=== PATIENT | male | born 1990 | race Caucasian/White ===

== ENCOUNTER 2022-06-18 09:58 | Outpatient (CLI) | payer OTHER, SELFPAY ==
[2022-06-18 18:36] LABS: Basophils Percent Auto 0.4 % (0.2-1.2); Eosinophils Absolute Auto 0.1 K/mm3 (0-0.3); Hematocrit 46.6 % (42.0-52.0); Hemoglobin 16.2 g/dL (14.0-18.0); Immature Granulocyte Absolute 0.07 K/mm3 (0.00-0.031); Lymphocytes Absolute Auto 1.08 K/mm3 (0.9-3.2); Lymphocytes Percent Auto 15.3 % (18.3-44.2); Mean Corpuscular HGB Conc 34.8 g/dl (32-36); Mean Corpuscular Hemoglobin 30.7 pg (26-34); Mean Corpuscular Volume 88.3 fl (80-100); Monocytes Absolute Auto 0.4 K/mm3 (0.1-0.6); Neutrophils Absolute Auto 5.5 K/mm3 (1.3-6.7); Neutrophils Percent Auto 77.3 % (45.5-73.1); Platelet Count Result 180 k/mm3 (150-375); Red Blood Count 5.28 M/mm3 (4.6-6.20); Red Cell Distribution Width 11.7 % (11.5-14.5); White Blood Count 7.1 K/mm3 (4.5-10.0)
[2022-06-18 19:08] LABS: Alanine Aminotransferase 44 U/L (6-50); Albumin Level 4.7 g/dL (3.5-5.1); Alkaline Phosphatase 59 U/L (38-126); Anion Gap 7 mmol/L (8-16); Aspartate Amino Transferase 33 U/L (17-59); Bilirubin,Total 0.6 mg/dL (0.2-1.3); Blood Urea Nitrogen 15 mg/dL (9-20); Calcium 9.4 mg/dL (8.4-10.2); Carbon Dioxide 27 mmol/L (22-30); Chloride 103 mmol/L (98-107); Estimated Glomerular Filt Rate > 60; Glucose 102 mg/dL (65-110); Potassium 4.4 mmol/L (3.4-5.0); Sodium 137 mmol/L (137-145)
[2022-06-18 19:48] LABS: Iron 68 ug/dL (49-181); Percent Iron Saturation 17 % (20-50)
[2022-06-22 18:32] LABS: Gliadin AB, IgG <1.0 U/mL (<15.0); TTG IGA AB <1.0 U/mL (<15.0)
== END 2022-06-18 09:59 | disposition home or self-care (01) ==
LOC: ANHGOSHLAB 09:59
PROVIDERS: PCP Internal Medicine; Visit Provider Nurse Practitioner
DX: K62.5 Hemorrhage of anus and rectum (principal)
CPT/HCPCS: 36415; 80053; 82728; 83516; 83540; 83550; 84443; 85025; 86255

== ENCOUNTER 2022-06-25 15:53 | Outpatient (CLI) | payer OTHER, SELFPAY ==
[2022-06-25 19:14] LABS: Erythrocyte Sedimentation Rate 12 mm/hr (0-20)
== END 2022-06-25 15:54 | disposition home or self-care (01) ==
LOC: ANHGOSHLAB 15:54
PROVIDERS: PCP Internal Medicine; Visit Provider Nurse Practitioner
DX: K62.5 Hemorrhage of anus and rectum (principal)
CPT/HCPCS: 36415; 85652

== ENCOUNTER 2022-07-16 10:49 | Outpatient (CLI) | payer OTHER, SELFPAY ==
[2022-07-24 19:52] LABS: Calprotectin, Stool 64 mcg/g
== END 2022-07-16 10:50 | disposition home or self-care (01) ==
LOC: ANHLAB 10:50
PROVIDERS: PCP Family Medicine; Visit Provider Nurse Practitioner Family
DX: K62.5 Hemorrhage of anus and rectum (principal)
CPT/HCPCS: 83993

== ENCOUNTER 2022-07-29 07:44 | Outpatient (NON) | payer OTHER, SELFPAY | END 2022-07-29 07:45 | disposition home or self-care (01) | PROVIDERS: PCP Family Medicine; Visit Provider Internal Medicine Gastroenterology | DX: K51.90 Ulcerative colitis, unspecified, without complications (principal) | CPT/HCPCS: 88305; 88342 ==

== ENCOUNTER 2022-07-29 11:51 | Day surgery (SDC) | payer OTHER, SELFPAY ==
[2022-06-29 14:29] VITALS: BMI 27.7
--- NOTE | 2022-07-29 11:41 | P.PNAN_ITS ---
Anes - Initial Pre Proc Eval Procedure: Operation Date: 07/29/22 13:30 Proposed Procedures p Diagnostic Colonoscopy - Keron Mccain MD Date/Time: 07/29/22 11:41 Surgeon: Keron Mccain MD Pre Op Diagnosis: Hemorrhage of anus and rectum Patient Data Age: 32 Gender: M Height: 1.88 m Weight: 98 kg Allergies Allergy/AdvReac Type Severity Reaction Status Date / Time No Known Allergies Allergy Verified 07/29/22 12:14 Home Medications Medication Instructions Recorded Confirmed Type sertraline 50 mg tablet 50 mg PO DAILY #90 tabs 07/16/22 07/29/22 Rx Patient hx anesthesia problems: none Family hx anesthesia problems: none Results Review: All pre-operative results and documents have been reviewed as part of the pre- operative evaluation. [facility] Past Medical History Medical History (Updated 07/29/22 @ 11:42 by Calvin Miguel MD) Chronic GERD Heart murmur IBS (irritable bowel syndrome) Ulcerative colitis Surgical History Surgical History H/O colonoscopy (~02/14/21) History of hand surgery (~2003) Family History Family History Mother Cancer Grandparent Cancer Diabetes mellitus Hypertension Cerebrovascular accident Father Diabetes mellitus Hypertension Social History Social History Smoking packs per day: 0.5 Smoking cigarettes per day: 10.0 Years smoked: 10 Smoking pack-years: 5.00 Smoking status: Former smoker Tobacco type: cigarettes and e-cigarettes/vaping Additional smoking assessment comments: on and off vaping when stressed has tried to quit Alcohol intake: current Drinks per week: 10 Alcohol use details: 3-6 drinks per week, beer, champagne Substance use: never Substance use type: does not use Lack of Transportation: No Lack of Food: Never True Current Housing: I Have Housing Concerned About Future Housing: No Difficulty Paying Gas/Electric Bills: No Difficulty Paying for Meds: No Currently Unemployed: No Education: Master's Degree or Higher Difficulty w/ Childcare or Family Care: No Living arrangements: with family Spiritual care concerns: No Anes - Eval Final PreProcedure Day of Procedure 07/29/22 11:41 Patient weight: overweight Heart: regular rate and rhythm Lungs: clear to auscultation and normal air movement Airway: Mallampati scale class II Neurological: alert and oriented Last oral intake: >/= 8 hours ASA classification: III Emergent: no Anesthetic plan: proceed Anesthesia type and monitoring: general GIVS Results Review: All pre-operative results and documents have been reviewed as part of the pre- operative evaluation. Informed Consent: The patient's anesthetic plan and its attendant risks and benefits were discussed with the patient/family/POA. Questions were solicited and answers provided to the satisfaction of the patient/family/POA.
[2022-07-29 12:15] VITALS: BP 137/87; PULSE 50; RESP 20; TEMP 36.7; O2SAT 99
[2022-07-29] MEDS: LACTATED RINGERS 1,000 ML 150 ML IV CONT (12:24)
--- NOTE | 2022-07-29 13:37 | SUR.PREOP ---
PT UPDATED DR RON REMAINS AT HOSPITAL. NO TIME FRAME GIVEN.
--- NOTE | 2022-07-29 14:31 | WPDHPUPDATE1 ---
History and Physical Update Update Date/Time: 07/29/22 14:31 History and Physical has been reviewed, including an updated exam of the patient. There are NO changes in the patient's condition. Risks, benefits, and alternatives have been discussed and questions answered. Patient agrees to proceed with procedure.
[2022-07-29 15:14] VITALS: BP 106/61; PULSE 43; RESP 15; O2SAT 100
[2022-07-29 15:24] VITALS: BP 105/63; PULSE 40; RESP 15; O2SAT 100
[2022-07-29 15:34] VITALS: BP 119/77; RESP 15; O2SAT 100
== END 2022-07-29 15:59 | disposition home or self-care (01) ==
PROVIDERS: PCP Family Medicine; Visit Provider Internal Medicine Gastroenterology
PROC: 0DJD8ZZ Inspection of Lower Intestinal Tract, Via Natural or Artificial Opening Endoscopic (ICD-10-PCS; CPT 45378; principal; 2022-07-29 13:30)
DX: K51.90 Ulcerative colitis, unspecified, without complications (principal)
CPT/HCPCS: 45380

== ENCOUNTER 2023-10-29 17:02 | Emergency (ER) | payer OTHER, SELFPAY ==
--- NOTE | ~2023-10-29 | XR_ITS ---
EXAM: XR foot RT min 3V DATE: 10/29/2023 17:28 HISTORY: dorsal foot pain, no injury . COMPARISON: None available. FINDINGS: Normal mineralization. No fracture or dislocation. No lytic or blastic lesion. Joint space s are maintained. No erosion or periosteal change. Soft tissues within normal limits. IMPRESSION: No acute osseous finding in the right foot. Reviewed, dictated and finalized at location K.
[2023-10-29 17:11] VITALS: BP 143/92; PULSE 65; RESP 16; TEMP 36.3; O2SAT 99
--- NOTE | 2023-10-29 17:58 | ED.EXTPRO ---
HPI - Extremity Problem General Chief complaint: Extremity Injury, Lower Stated complaint: Swollen Right Foot Time Seen by Provider: 10/29/23 17:20 Source: patient and RN notes reviewed Mode of arrival: other (with crutches) Limitations: no limitations History of Present Illness HPI Narrative: Patient presents today complaining of pain to the dorsum of his right foot. States he stepped out of a car yesterday and had some immediate pain as he stepped onto the ground. Denies any rolling of the foot or known injury. As time has gone on, the pain has worsened to the point where he does not feel that he can walk and has been using crutches. Denies numbness or tingling in the foot or toes. No pain to the lower leg or calf. No pain to the ankle. Patient denies any history of gout. States he was recently diagnosed with Ulcerative Colitis. Patient states he is not on any medication at this time for his UC. States he was told recently by GI that he had to start eating more protein and meat. He did not eat much as his is vegetarian. He was on vacation over the last few days and has been eating a lot of seafood and ate brisket last night. He does not drink alcohol anymore due to his UC. Related Data Allergies Allergy/AdvReac Type Severity Reaction Status Date / Time No Known Allergies Allergy Verified 10/29/23 17:25 Review of Systems Review of Systems: CONSTITUTIONAL: Denies body aches, fever, chills, or sweats. EYES: Denies visual changes, redness, or discharge. ENT: Denies rhinorrhea, congestion, sore throat, or otalgia. CARDIOVASCULAR: Denies chest pain, palpitations, or edema. RESPIRATORY: Denies cough or dyspnea. GASTROINTESTINAL: Denies abdominal pain, nausea, vomiting, or diarrhea. GENITOURINARY: Denies dysuria or hematuria. SKIN: Denies rash, itching, or wounds. MUSCULOSKELETAL: Denies back pain, or myalgia. + right foot pain and swelling NEUROLOGIC: Denies headache, numbness, tingling, or weakness. PSYCH: Denies depression or anxiety. [facility] Past Medical History Medical History Chronic GERD Heart murmur IBS (irritable bowel syndrome) Ulcerative colitis Surgical History Surgical History H/O colonoscopy (~02/14/21) History of hand surgery (~2003) Family History Family History Mother Cancer Grandparent Cancer Diabetes mellitus Hypertension Cerebrovascular accident Father Diabetes mellitus Hypertension Social History Social History Years smoked: 10 Smoking status: Former smoker Smoking end date: 09/13/22 Additional smoking assessment comments: recently quit smoking Alcohol intake: current Drinks per week: 10 Alcohol use details: 3-6 drinks per week, beer, champagne Substance use: never Substance use type: does not use Lack of Transportation: No Lack of Food: Never True Current Housing: I Have Housing Concerned About Future Housing: No Difficulty Paying Gas/Electric Bills: No Difficulty Paying for Meds: No Currently Unemployed: No Education: Master's Degree or Higher Difficulty w/ Childcare or Family Care: No Living arrangements: with family Spiritual care concerns: No Comments At time of signature, I have reviewed and agree with nursing past medical, surgical, social and family history unless otherwise noted. Please see nursing chart for further information. There is no relevant family history pertinent to the presenting complaint Exam Narrative: GENERAL: Well-appearing, well-nourished, and in no acute distress. HEAD: Normocephalic, atraumatic. EYES: EOMI. No redness or drainage. Conjunctivae normal. ENT: Mucous membranes pink and moist. NECK: Normal AROM. CHEST: No respiratory distress. EXTREMI
== END 2023-10-29 18:07 | disposition home or self-care (01) ==
PROVIDERS: Emergency Provider Nurse Practitioner; PCP Family Medicine
DX: M10.9 Gout, unspecified (principal); Z87.891 Personal history of nicotine dependence; K21.9 Gastro-esophageal reflux disease without esophagitis; R01.1 Cardiac murmur, unspecified
CPT/HCPCS: 73630; 99213; G0463

== ENCOUNTER 2023-11-16 08:36 | Outpatient (CLI) | payer OTHER, SELFPAY ==
[2023-11-16 19:21] LABS: Basophils Percent Auto 0.2 % (0.2-1.2); Eosinophils Absolute Auto 0.1 K/mm3 (0-0.3); Eosinophils Percent Auto 1.3 % (0-4.4); Hematocrit 47.9 % (42.0-52.0); Hemoglobin 16.1 g/dL (14.0-18.0); Immature Granulocyte Absolute 0.02 K/mm3 (0.00-0.031); Immature Granulocyte Percent A 0.4 % (0-0.5); Lymphocytes Absolute Auto 1.29 K/mm3 (0.9-3.2); Lymphocytes Percent Auto 23.3 % (18.3-44.2); Mean Corpuscular HGB Conc 33.6 g/dl (32-36); Mean Corpuscular Hemoglobin 31.1 pg (26-34); Mean Corpuscular Volume 92.6 fl (80-100); Mean Platelet Volume 10.6 fl (7.4-10.4); Monocytes Absolute Auto 0.5 K/mm3 (0.1-0.6); Monocytes Percent Auto 8.7 % (2.6-8.5); Neutrophils Absolute Auto 3.7 K/mm3 (1.3-6.7); Neutrophils Percent Auto 66.1 % (45.5-73.1); Platelet Count Result 171 k/mm3 (150-375); Red Blood Count 5.17 M/mm3 (4.6-6.20); Red Cell Distribution Width 11.7 % (11.5-14.5); White Blood Count 5.5 K/mm3 (4.5-10.0)
[2023-11-16 20:19] LABS: Alanine Aminotransferase 70 U/L (6-50); Albumin Level 4.6 g/dL (3.5-5.1); Alkaline Phosphatase 57 U/L (38-126); Anion Gap 11 mmol/L (4-12); Aspartate Amino Transferase 42 U/L (17-59); Bilirubin,Total 0.8 mg/dL (0.2-1.3); Blood Urea Nitrogen 16 mg/dL (9-20); Calcium 9.1 mg/dL (8.4-10.2); Carbon Dioxide 26 mmol/L (22-30); Chloride 102 mmol/L (98-107); Cholesterol 299 mg/dL (0-200); Estimated Glomerular Filt Rate > 60; Glucose 95 mg/dL (65-110); HDL Direct 36 mg/dL; Potassium 4.1 mmol/L (3.4-5.0); Sodium 139 mmol/L (137-145); Triglycerides 347 mg/dL (<150)
[2023-11-16 20:34] LABS: LDL Cholesterol Direct 137 mg/dL
== END 2023-11-16 08:37 | disposition home or self-care (01) ==
LOC: ANHGOSHLAB 08:38
PROVIDERS: PCP Family Medicine; Visit Provider Family Medicine
DX: Z00.00 Encounter for general adult medical examination without abnormal findings (principal)
CPT/HCPCS: 36415; 80053; 80061; 84550; 85025

== ENCOUNTER 2024-03-08 10:41 | Emergency (ER) | payer SELFPAY ==
--- NOTE | ~2024-03-08 | XR_ITS ---
EXAMINATION: XR chest 2V DATE: 03/08/2024 11:25 INDICATION: Shortness of breath, cough and fever TECHNIQUE: PA and lateral views of the chest were obtained. COMPARISON: None FINDINGS: Subtle airspace opacities in the perihilar left mid and lower lung zones suspicious for pneumonia. Ri ght lung remains clear. No pleural effusion or pneumothorax. The cardiomediastinal silhouette is norm al. Visualized bones and soft tissues are unremarkable. IMPRESSION: 1. Left perihilar opacities suspicious for pneumonia. Reviewed, dictated and finalized at location B. LINE ASSEMBLER
[2024-03-08 10:52] VITALS: BP 120/80; PULSE 87; RESP 16; TEMP 37; O2SAT 100
[2024-03-08 11:21] LABS: EDINFLUASCREEN Negative (Negative); EDINFLUBSCREEN Negative (Negative); EDSTREPNEGPOS1 Negative (Negative)
--- NOTE | 2024-03-08 11:35 | ED.URI ---
HPI - URI/Sore Throat General Chief Complaint: Upper Respiratory Infection Stated Complaint: Headache/Cough/Fever Time Seen by Provider: 03/08/24 11:05 Source: patient Mode of arrival: ambulatory Limitations: no limitations History of Present Illness HPI Narrative: Gopal is a 33-year-old male patient presenting to the clinic today with complaints of headache, nasal congestion, cough, fever, congestion, shortness of breath, nausea, vomiting, fatigue, and sore throat. He reports symptoms started on Tuesday. 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 He has taken 2 at home COVID test and both were negative. MD elicited complaint: fever, cough, sore throat and nasal congestion Related Data Allergies Allergy/AdvReac Type Severity Reaction Status Date / Time No Known Allergies Allergy Verified 03/08/24 11:04 Review of Systems Review of Systems: Pertinent positives per HPI. Patient denies any rash, visual changes, dizziness,chest pain, palpitations, diarrhea, constipation, abdominal pain, or any urinary issues. [facility] Past Medical History Medical History (Updated 03/08/24 @ 11:37 by Ciro Johnson APRN) Chronic GERD Heart murmur IBS (irritable bowel syndrome) Surgical History Surgical History H/O colonoscopy (~02/14/21) History of hand surgery (~2003) Family History Family History Mother Cancer Grandparent Cancer Diabetes mellitus Hypertension Cerebrovascular accident Father Diabetes mellitus Hypertension Social History Social History (Updated 11/03/23 @ 11:56 by Kristina Roche MA) Years smoked: 10 Smoking status: Former smoker Smoking end date: 09/13/22 Additional smoking assessment comments: recently quit smoking Alcohol intake: current Drinks per week: 10 Alcohol use details: 3-6 drinks per week, beer, champagne Substance use: current Substance use type: marijuana Do You Feel Safe in your Home?: Yes Lack of Transportation: No Lack of Food: Never True Current Housing: I Have Housing Concerned About Future Housing: No Difficulty Paying Gas/Electric Bills: No Difficulty Paying for Meds: No Currently Unemployed: No Education: Master's Degree or Higher Difficulty w/ Childcare or Family Care: No Living arrangements: with family Spiritual care concerns: No Comments At the time of my signature, I reviewed and agree with the nursing past medical, surgical, social, and family history. There is no relevant family history pertinent to the patient complaint. Exam Narrative: General: Well-developed, well nourished, in no apparent distress Head: Normocephalic, atraumatic Eyes: Pupils equally round and reactive to light bilaterally, EOM intact, sclera and conjunctive clear, no discharge, lids normal Ears: TMs intact and congested, ear canals clear, no drainage, grossly hearing normal. Nose: Nares patent, clear nasal discharge, no inflammation, no sinus tenderness. Mouth: Oral pharynx red without lesions or masses, good dentition, MMM. Neck: Supple, trachea midline, no enlargement of anterior or posterior cervical nodes, no thyroid masses or goiter palpable. Cardio: Regular rate and rhythm, s1 and s2 normal, no murmur appreciated. Resp: Faint crackles over the left upper lobe, no rhonchi, wheezing or rubs Course Course Emergency Course: Portions of this record may have been created with voice recognition software. Level of Care: Express Care Visit Vital Signs Vital signs: Vital Signs Temperature 37.0 C 03/08/24 10:52 Pulse Rate 87 03/08/24 10:52 Respiratory Rate 16 03/08/24 10:52 Blood Pressure 120/80 03/08/24 10:52 Pulse Oximetry 100 03/08/24 10:52 Temperature 37.0 C 03/08/24 10:52 Pulse Rate 87 03/08/24 10:52 Respiratory Rate 16 03/08/24 10:52 Blood Pressure 120/80 03/08/24 10:52 Pulse Oximetry 100 03/08/24 10:52 Vital signs reviewed MDM - URI/Sore Throat MDM Narrative Medical decision making narrative: At the time of visit patient is resting comfortably on the exam table. Patient appears to be nontoxic. Labs: Influenza and strep test were performed and were negative. We will send strep for culture. Diagnostics: Chest x-ray shows possible pneumonia it to the left perihilar area Plan: I suspect patient has pneumonia. Prescription for albuterol inhaler, azithromycin, and Augmentin was sent to the pharmacy. Supportive measures were discussed with the patient and they voiced understanding discharge instructions and agrees to treatment plan. Return precautions reviewed Differential Diagnosis Differential diagnosis: Likely upper respiratory infection, otitis media, sinusitis, viral infection, bronchitis, influenza, pharyngitis and other (COVID) Lab Data Labs: Lab Results 03/08/24 Range/Units 11:20 POC Influenza A Ag Negative (Negative) POC Influenza B Ag Negative (Negative) POC Grp A Strep Screen Negative (Negative) Imaging Data Radiologist's impression: ITS Impressions Chest X-Ray 03/08/24 11:30 IMPRESSION: 1. Left perihilar opacities suspicious for pneumonia. Discharge Plan Discharge Clinical Impression: Pneumonia Patient Disposition: Home, Self-Care Condition: Stable Instructions: Antibiotic Form, Pneumonia (ED) Additional Instructions: Influenza and strep test were negative in the clinic today. Chest x-ray shows left perihilar opacities suspicious for pneumonia Take prescription medications only as prescribed-albuterol, and azithromycin, and Augmentin Increase fluids and stay well hydrated Tylenol/motrin for pain/fever Flonase and OTC antihistamines as directed Vicks vapor rub to open sinuses Sinus rinses for congestion Cepacol spray, cough drops, throat lozenges, warm tea with honey/lemon, gargle salt water to soothe throat BRAT diet for diarrhea Clear liquids x 24 hours then advance as tolerated for nausea/vomiting Go to the ED if you develop a worsening in your condition- high fever not controlled by Tylenol or Motrin, dehydration, weakness, lethargy, shortness of breath, or chest pain. Follow up with your PCP in 3-5 days if symptoms persist. Prescriptions: New azithromycin 250 mg tablet See Rx Instructions .ROUTE .COMPLEX Qty: 6 0RF Rx Instructions: For 250 mg dose pack: take 500 mg today (day 1), then 250 mg for 4 days (days 2-5) albuterol sulfate 90 mcg/actuation HFA aerosol inhaler 2 puff inhalation Q4-6H PRN (Reason: shortness of breath or wheezing) 30 Days Qty: 8.5 0RF amoxicillin-pot clavulanate 875-125 mg tablet 1 tablet PO Q12H 7 Days Qty: 14 0RF No Action colchicine 0.6 mg tablet See Rx Instructions PO DAILY 7 Days Qty: 7 1RF Rx Instructions: acute episode: 1.2mg x1. may repeat 0.6mg after one hour. max daily dose 1.8mg sertraline 50 mg tablet 50 mg PO DAILY Qty: 90 3RF allopurinol 300 mg tablet 600 mg PO DAILY Qty: 180 3RF Follow-up/Referrals: [facility] [Primary Care Provider] - Stand Alone Forms: Work/School Release IP Time of Disposition: 11:38 Quality NIHSS Nursing Documentation ED NIHSS nursing documentation: reviewed/agree
== END 2024-03-08 11:45 | disposition home or self-care (01) ==
PROVIDERS: Emergency Provider Nurse Practitioner Family
DX: J18.9 Pneumonia, unspecified organism (principal); Z87.891 Personal history of nicotine dependence; Z20.822 Contact with and (suspected) exposure to COVID-19
CPT/HCPCS: 71046; 87081; 87804; 87880; 99213; G0463

== ENCOUNTER 2025-03-05 08:07 | Outpatient (CLI) | payer BC, SELFPAY ==
--- OUTSIDE RECORDS SUMMARY | 2025-03-05 08:15 | XMS_ITS | Clinical Summary ---
Author Organization [facility] [address] [place] Address [address] [place] [id number] Care Team Providers Care Scratch Brusher Name Role Phone Unknown, Notinfile Primary Care Provider Unavail able Allergies No known active allergies Medications allopurinoL (ZYLOPRIM) 300 mg tablet TAKE 2 TABLET BY MOUTH DAILY. Active sertraline (ZOLOFT) 50 mg tablet Take 1 tablet (50 mg total) by mouth daily Active triamcinolone (KENALOG) 0.1 % creamIndication s:Insect bite of chest, left, initial encounter Apply to affected area 1-2 times daily as needed. Avoid face and groin. 30 g 10/23/2024 10/24/19 26 Active Active Problems No known active problems Social History Tobacco Use Types Packs/Day Years Used Date Smoking Tobacco: Never Assessed Sex and Gender Information Value Date Recorded Sex Assigned at Not on file Legal Sex Male 8:20 AM CDT Gender Identity Not on file Sexual Orientation Not on file Last Filed Vital Signs Vital Sign Reading Time Taken Comments Blood Pressure 157/104 10/23/2024 8:30 AM CDT Pulse 88 10/23/2024 8:30 AM CDT Temperature 37.2 C (98.9 F) 10/23/2024 8:30 AM CDT Respiratory Rate 18 10/23/2024 8:30 AM CDT Oxygen Saturation 97% 10/23/2024 8:30 AM CDT Inhaled Oxygen Concentration - - Weight 106.6 kg (235 lb) 10/23/2024 8:30 AM CDT Height 185.4 cm (6' 1) 10/23/2024 8:30 AM CDT Body Mass Index 31 10/23/2024 8:30 AM CDT Plan of Treatment Health Maintenance Due Date Last Done Comments Depression Screening 1988 Hepatitis C Screening 1988 Varicella Vaccines (1 of 2 - 13+ 2-dose series) 2001 Regular Well Visit/Exam 18-64 2006 HPV Vaccines (1 - 3-dose SCDM series) 2015 DTaP/Tdap/Td Vaccine (7 - Td or Tdap) 06/20/2022 06/20/2012, 12/06/2002, 12/16/1993, Additional history exists Covid-19 Vaccine ( - 2024- season) 2024 05/16/2024, 02/12/2021, 06/14/2020, Additional history exists Influenza Vaccine (#1) 2024 , 02/04/2020, 05/06/2012 Hepatitis B Screening Completed 12/08/1998 , 08/04/1998, 07/07/1998 Pneumococcal vaccine <65 Aged Out No longer eligible based on patient's age to complete this topic Insurance [place] Care Teams Scratch Brusher Relationship Specialty Start Date End Date Unknown, Notinfile PCP - General 10/23/24
--- OUTSIDE RECORDS SUMMARY | 2025-03-05 08:15 | XMS_ITS | Clinical Summary ---
Author Organization [facility] Address [address] [place] [address] Care Team Providers Care Jack Strip Assembler Name Role Phone A, Unknown Practice Primary Care Provider [phone] Allergies No known active allergies Medications allopurinol (ZYLOPRIM) 300 MG tablet Take 2 tablets (600 mg total) by mouth nightly at bedtime. 06/18/2024 Active colchicine 0.6 MG tablet Take 1 tablet (0.6 mg total) by mouth daily. 04/23/2024 Active sertraline (ZOLOFT) 50 MG tablet 06/18/2024 Active Social History Tobacco Use Types Packs/Day Years Used Date Smoking Tobacco: Never Assessed Sex and Gender Information Value Date Recorded Sex Assigned at Male 06/19/2024 12:48 PM ODD PIECE CHECKER Legal Sex Male 11:55 AM ODD PIECE CHECKER Gender Identity Not on file Sexual Orientation Not on file Last Filed Vital Signs Vital Sign Reading Time Taken Comments Blood Pressure 128/80 06/19/2024 12:06 PM ODD PIECE CHECKER Pulse 53 06/19/2024 12:06 PM ODD PIECE CHECKER Temperature 36.7 C (98.1 F) 06/19/2024 12:06 PM ODD PIECE CHECKER Respiratory Rate 16 06/19/2024 12:06 PM ODD PIECE CHECKER Oxygen Saturation 98% 06/19/2024 12:06 PM ODD PIECE CHECKER Inhaled Oxygen Concentration - - Weight 106.1 kg (234 lb) 06/19/2024 12:06 PM ODD PIECE CHECKER Height 188 cm (6' 2) 06/19/2024 12:06 PM ODD PIECE CHECKER Body Mass Index 30.04 06/19/2024 12:06 PM ODD PIECE CHECKER Plan of Treatment Health Maintenance Due Date Last Done Comments Annual Physical 1991 Hepatitis C 2006 HPV Vaccines (1 - 3-dose SCDM series) 2015 DTaP, Tdap and Td Vaccines (7 - Td or Tdap) 06/20/2022 06/20/2012, 12/06/2002, 12/16/1993, Additional history exists PHQ-2 (Physician [place]) 04/25/2024 COVID-19 Vaccine (5 - 2024- season) 2024 05/16/2024, 02/12/2021, 06/14/2020, Additional history exists Influenza Adult (#1) 2025 03/27/2024, 02/04/2020, 05/06/2012 Hepatitis B Vaccines Completed 12/08/1998, 08/04/1998, 07/07/1998 Hepatitis A Vaccines Aged Out 06/20/2012 No long er eligible based on patient's age to complete this topic Meningococcal B Vaccine Aged Out No l onger eligible based on patient's age to complete this topic Meningococcal Vaccine Aged Out No tena dylon eligible based on patient's age to complete this topic Pneumococcal Vaccine: Pediatrics (0 to 5 Years) and At-Risk Patients (6 to 49 Years) Aged Out No longer eligible based on patient's age to complete this topic RSV Immunizations Under 20 Months Aged Out No longer eligible based on patient's age to complete this topic Care Teams Jack Strip Assembler Relationship Specialty Start Date End Date A, Unknown Practice [address] [place] [address] PCP - General 06/19/24
--- OUTSIDE RECORDS SUMMARY | 2025-03-05 08:15 | XMS_ITS | Clinical Summary ---
Author Organization [facility] Address [address] [place] [address] Care Team Providers Care It Account Manager Name Role Phone Provider, Unknown Primary Care Provider Unavaila ble Immunizations Immunization Administration Dates Next Due Covid-19, Mrna, Lnp-s, Pf, 30 Mcg/0.3 Ml Dose (P michaelzer) 02/12/2021 Social History Tobacco Use Types Packs/Day Years Used Date Smoking Tobacco: Never Assessed Sex and Gender Information Value Date Recorded Sex Assigned at Not on file Legal Sex Male 2:49 AM CLERK GENERAL Gender Identity Not on file Sexual Orientation Not on file Plan of Treatment Health Maintenance Due Date Last Done Comments Hepatitis C Virus (HCV) Screening 1988 Human Papillomavirus (HPV) Immunization (1 - 3-dose SCDM series) 2015 Influenza Immunization (#1) 2024 02/04/2020, 0 05/06/2012 SARS-COV-2 Immunization ( - 2024- season) 2024 02/12/2021, 06/14/2020, 05/24/2020 Respiratory Syncytial Virus (RSV) Immunization (Adult) (1 - 1-dose 75+ series) 2063 Hepatitis B Immunization Completed 999, 08/04/1998, 07/07/1998 DTaP/Tdap/Td Immunization Discontinued 2012, 12/06/2002, 12/16/1993, Additional history exists TdaP Immunization Completed 06/20/2012 Meningococcal Immunization (ACWY) Aged Out No longer eligible based on patient's age to complete this topic Pneumococcal Immunization Combined Aged Out No longer eligible based on patient's age to complete this topic Rotavirus Immunization Aged Out No lo nger eligible based on patient's age to complete this topic Care Teams It Account Manager Relationship Specialty Start Date End Date Provider, Unknown UNKNOWN PCP - General 05/01/09
[2025-03-05 13:07] LABS: Alanine Aminotransferase 32 U/L (6-50); Albumin Level 4.6 g/dL (3.5-5.1); Alkaline Phosphatase 64 U/L (38-126); Anion Gap 9 mmol/L (4-12); Aspartate Amino Transferase 34 U/L (17-59); Bilirubin,Total 0.5 mg/dL (0.2-1.3); Blood Urea Nitrogen 20 mg/dL (9-20); Calcium 9.1 mg/dL (8.4-10.2); Carbon Dioxide 27 mmol/L (22-30); Chloride 104 mmol/L (98-107); Cholesterol 206 mg/dL (0-200); Estimated Glomerular Filt Rate > 60; Glucose 90 mg/dL (65-110); HDL Direct 28 mg/dL; Potassium 4.5 mmol/L (3.4-5.0); Sodium 140 mmol/L (137-145); Total Protein 8.1 g/dL (6.3-8.2); Triglycerides 498 mg/dL (<150); Uric Acid 4.3 mg/dL (3.5-8.5)
[2025-03-06 11:44] LABS: Thyroid Stimulating Hormone 3.200 uIU/mL (0.465-4.680)
== END 2025-03-05 08:08 | disposition home or self-care (01) ==
LOC: ANHGOSHLAB 08:08
PROVIDERS: PCP Family Medicine; Visit Provider Family Medicine
DX: M10.9 Gout, unspecified (principal); E78.2 Mixed hyperlipidemia; E78.1 Pure hyperglyceridemia
CPT/HCPCS: 36415; 80053; 80061; 84443; 84550